=== PATIENT | female | born 1990 | race Caucasian/White ===

== ENCOUNTER 2023-05-21 10:32 | Inpatient (IN) | payer OTHER ==
[~2023-05-21] VITALS: Ht 175.3 cm; Wt 72.1 kg
[2023-05-21] MEDS ORDERED: LR 1,000 ML IV SCH ×2 (11:30→13:15)
[2023-05-21] MEDS ORDERED: CEFAZOLIN 2 GM IVPB PREMIX 50 ML IV ONE (11:30)
[2023-05-21] MEDS ORDERED: CITRIC ACID/SODIUM CITRATE 30 ML UDC PO ONE (11:30)
[2023-05-21] MEDS ORDERED: CLINDAMYCIN 900 mg/50mL D5W 50 ML IV ONE (11:30)
[2023-05-21] MEDS ORDERED: CLINDAMYCIN 600 mg/50mL D5W 50 ML IV ONE (11:30)
[2023-05-21 11:51] LABS: BASOPHILS # (AUTO) 0.1 K/uL (0.0-0.2); BASOPHILS % (AUTO) 0.7 % (0.0-2.0); EOSINOPHILS % (AUTO) 0.4 % (0.0-4.0); HEMATOCRIT 36.4 % (36-48); LYMPHOCYTES # (AUTO) 2.5 K/uL (1.0-5.5); LYMPHOCYTES % (AUTO) 21.8 % (20.5-51.5); MEAN CORPUSCULAR HEMOGLOBIN 28 pg (27-31); MEAN CORPUSCULAR HGB CONC 33 % (32-36); MEAN CORPUSCULAR VOLUME 85 fL (79.0-98.0); MONOCYTES # (AUTO) 0.9 K/uL (0.0-1.0); MONOCYTES % (AUTO) 8.1 % (1.7-9.3); NEUTROPHILS # (AUTO) 7.9 K/uL (1.8-7.7); PLATELET COUNT (AUTO) 204 K/uL (130-430); RED CELL DISTRIBUTION WIDTH 13.6 % (9.0-15.0); WHITE BLOOD COUNT (AUTO) 11.5 K/uL (4.8-10.8)
[2023-05-21 11:58] LABS: BILIRUBIN,URINE NEGATIVE (NEGATIVE); BLOOD, URINE NEGATIVE (NEGATIVE); CLARITY/URINE CLEAR (CLEAR); COLOR,URINE YELLOW (YELLOW); GLUCOSE,URINE NEGATIVE (NEGATIVE); KETONES,URINE NEGATIVE (NEGATIVE); LEUKOCYTE ESTERASE ,URINE NEGATIVE (NEGATIVE); NITRITE, URINE NEGATIVE (NEGATIVE); PROTEIN URINE TRACE (NEGATIVE); UROBILINOGEN,URINE 0.2 (0.2-1.0)
[2023-05-21 12:20] LABS: BACTERIA,URINE RARE /HPF (None Seen); CALCIUM OXALATE CRYSTALS,UR None Seen /HPF (None Seen); CALCIUM PHOSPHATE CRYSTALS,UR None Seen /HPF (None Seen); FINE GRANULAR CASTS,URINE None Seen /LPF (None Seen); HYALINE CASTS, URINE None Seen /LPF (None Seen); MUCUS,URINE None Seen /LPF (None Seen); OTHER CASTS, URINE None Seen /LPF (None Seen); OTHER CRYSTALS,URINE None Seen /HPF (None Seen); RBC,URINE NONE SEEN /HPF (0-3); TRICHOMONAS,URINE None Seen /HPF (None Seen); TRIPLE PHOSPHATE CRYSTAL,UR None Seen /HPF (None Seen); URIC ACID CRYSTALS,URINE None Seen /HPF (None Seen); URINE AMORPHOUS PHOSPHATES None Seen /HPF (None Seen); URINE AMORPHOUS URATE None Seen /HPF (None Seen); WAXY CASTS,URINE None Seen /LPF (None Seen); WBC,URINE 0-3 /HPF (0-3); YEAST,URINE None Seen /HPF (None Seen)
[2023-05-21 12:37] LABS: COARSE GRANULAR CASTS,URINE None Seen /LPF (None Seen)
[2023-05-21] MEDS ORDERED: KETOROLAC TROMETHAMINE 30 MG VIAL IVP PRN (13:15)
[2023-05-21] MEDS ORDERED: OXYCODONE/ACETAMINOPHEN 5-325 TABLET PO PRN (13:15)
[2023-05-21] MEDS ORDERED: ANUSOL 1 EA SUPP.RECT (PREPARATION H) RC PRN (13:15)
[2023-05-21] MEDS ORDERED: LR 1,000 ML IV.SOLN IV ONE (13:22)
[2023-05-21] MEDS ORDERED: ONDANSETRON HCL 4 MG/2 ML VIAL ONE (13:22)
[2023-05-21] MEDS ORDERED: WATER FOR IRRIGATION,STERILE 1,000 ML IRRIG.SOLN IR ONE (13:22)
[2023-05-21] MEDS ORDERED: MORPHINE SULFATE 10MG/10ML PF AMP ONE (13:22)
[2023-05-21] MEDS ORDERED: OXYTOCIN 10 UNIT/ML VIAL ONE (13:22)
[2023-05-21] MEDS ORDERED: METOCLOPRAMIDE HCL 10 MG/2 ML VIAL ONE (13:22)
[2023-05-21] MEDS ORDERED: KETOROLAC TROMETHAMINE 60 MG/2 ML VIAL IM PRN (13:45)
[2023-05-21] MEDS ORDERED: ONDANSETRON HCL 4 MG/2 ML VIAL IVP PRN (13:45)
[2023-05-21] MEDS ORDERED: MORPHINE SULFATE 10MG/10ML PF AMP SP PRN (13:45)
[2023-05-21] MEDS ORDERED: DIPHENHYDRAMINE INJ 50 MG/ML VIAL IM PRN (14:30)
[2023-05-21] MEDS ORDERED: NALOXONE HCL 0.4 MG/ML AMP (NARCAN) IVP PRN (14:30)
[2023-05-21] MEDS ORDERED: ACETAMINOPHEN I.V. 1000 MG 100 ML IV ONE (14:31)
[2023-05-21 14:40] VITALS: BP_SYST 128
[2023-05-21] MEDS: SENNOSIDES/DOCUSATE SODIUM 1 TAB TABLET(SENOKOT-S) PO SCH (20:56)
[2023-05-21] MEDS: SIMETHICONE 80 MG TAB.CHEW PO PRN (20:56)
[2023-05-21] MEDS: DOCUSATE SODIUM 100 MG CAPSULE PO SCH (20:56)
[2023-05-21] MEDS ORDERED: TEMAZEPAM 15 MG CAPSULE PO PRN (21:00)
[2023-05-22] MEDS: SIMETHICONE 80 MG TAB.CHEW PO PRN ×6 (00:13→20:41)
[2023-05-22 06:54] LABS: BASOPHILS # (AUTO) 0.1 K/uL (0.0-0.2); BASOPHILS % (AUTO) 0.6 % (0.0-2.0); EOSINOPHILS % (AUTO) 0.1 % (0.0-4.0); HEMATOCRIT 33.6 % (36-48); HEMOGLOBIN 11.2 g/dL (12.0-16.0); LYMPHOCYTES # (AUTO) 1.9 K/uL (1.0-5.5); LYMPHOCYTES % (AUTO) 13.6 % (20.5-51.5); MEAN CORPUSCULAR HEMOGLOBIN 28 pg (27-31); MEAN CORPUSCULAR HGB CONC 34 % (32-36); MEAN CORPUSCULAR VOLUME 85 fL (79.0-98.0); MONOCYTES # (AUTO) 1.2 K/uL (0.0-1.0); MONOCYTES % (AUTO) 8.4 % (1.7-9.3); NEUTROPHILS % (AUTO) 77.3 % (40.0-70.0); PLATELET COUNT (AUTO) 164 K/uL (130-430); RED BLOOD CELL COUNT(AUTO) 3.95 MIL/uL (4.2-6.2); RED CELL DISTRIBUTION WIDTH 13.8 % (9.0-15.0); WHITE BLOOD COUNT (AUTO) 14.2 K/uL (4.8-10.8)
[2023-05-22] MEDS: DOCUSATE SODIUM 100 MG CAPSULE PO SCH ×2 (09:40→20:40)
[2023-05-22] MEDS: IBUPROFEN 800 MG TABLET PO PRN ×2 (10:15→18:39)
[2023-05-22] MEDS: OXYCODONE/ACETAMINOPHEN 5-325 TABLET PO PRN ×2 (14:54→20:41)
[2023-05-22] MEDS: SENNOSIDES/DOCUSATE SODIUM 1 TAB TABLET(SENOKOT-S) PO SCH (20:40)
[2023-05-23] MEDS: OXYCODONE/ACETAMINOPHEN 5-325 TABLET PO PRN ×2 (02:52→06:36)
[2023-05-23] MEDS: SIMETHICONE 80 MG TAB.CHEW PO PRN ×2 (02:55→09:00)
[2023-05-23] MEDS: IBUPROFEN 800 MG TABLET PO PRN ×2 (09:00→15:02)
[2023-05-23] MEDS: DOCUSATE SODIUM 100 MG CAPSULE PO SCH (09:00)
== END 2023-05-23 18:10 | disposition home or self-care (01) | DRG 788 ==
LOC: SPU 10:32
PROVIDERS: ADMIT Obstetrics & Gynecology; ATTEND Obstetrics & Gynecology
PROC: 10D00Z1 Extraction of Products of Conception, Low, Open Approach (ICD-10-PCS; principal; 2023-05-21 13:22)
DX: O32.1XX0 Maternal care for breech presentation, not applicable or unspecified (principal); Z3A.39 39 weeks gestation of pregnancy; Z37.0 Single live birth
CPT/HCPCS: 36415; 81000; 85025; 86592; 86886; 86900; 86901; 94760; J0131; J0690; J1885; J2274; J2405; J2590; J2765; J7120